=== PATIENT | female | born 1950 | race Caucasian/White ===

== ENCOUNTER 2022-08-30 12:03 | Outpatient (CLI) | payer MEDICARE | END 2022-08-30 12:04 | disposition home or self-care (01) | LOC: CSHRAD 12:03 | PROVIDERS: ATTEND Internal Medicine | DX: M25.561 Pain in right knee (principal) ==

== ENCOUNTER 2022-11-18 08:51 | Outpatient (CLI) | payer MEDICARE | END 2022-11-18 08:52 | disposition home or self-care (01) | LOC: CSHRAD 08:51 | PROVIDERS: ATTEND Internal Medicine | DX: R06.02 Shortness of breath (principal); R05.9 Cough, unspecified | CPT/HCPCS: 71046 ==